=== PATIENT | male | born 1975 | race Caucasian/White ===

== ENCOUNTER 2023-06-03 09:25 | Inpatient (IN) | payer BC ==
[2023-06-03] MEDS ORDERED: Bisacodyl 10 MG SUPP PR PRN (09:50)
[2023-06-03] MEDS ORDERED: Senokot S 8.6-50 MG TAB PO PRN (09:50)
[2023-06-03] MEDS ORDERED: Bisacodyl 5 MG TAB PO PRN (09:50)
[2023-06-03 09:59] VITALS: BMI 32.1
[2023-06-03] MEDS ORDERED: Glucagon 1 MG/ML KIT IM PRN (09:59)
[2023-06-03] MEDS ORDERED: Dextrose 50% Abboject 50 ML SYRINGE SLOW IVP PRN (09:59)
[2023-06-03] MEDS ORDERED: Dextrose 5% in Water 1,000 ML IV PRN (09:59)
[2023-06-03] MEDS ORDERED: HumaLOG 300 UNITS/3 ML VIAL SC PRN ×2 (09:59)
[2023-06-03 10:32] LABS: #Basophils 0.1 thou/uL (0.0-0.2); #Eosinphils 0.3 thou/uL (0.0-0.7); #Monocytes 0.8 thou/uL (0.11-0.59); %Eosinophils 5.6 % (0.0-10.0); %Monocytes 13.3 % (0.0-10.0); Hemoglobin 13.7 g/dL (14.0-18.0); Mean Platelet Volume 10.3 fL (7.4-10.4)
[2023-06-03 10:41] LABS: #Neutrophils 3.1 thou/uL (1.40-6.50); %Lymphocytes 29.4 % (21.0-51.0); %Neutrophils 50.4 % (42.0-75.0); Hematocrit 39.2 % (42.0-52.0); Mean Corpuscular HGB CONC 34.9 g/dL (32.0-36.0); Mean Corpuscular Hemoglobin 32.3 pg (27.0-31.0); Mean Corpuscular Volume 92.5 fl (78.0-98.0); Platelet Count 239 10x3/uL (130-400); RBC Distribution Width 14.6 % (11.5-14.5); Red Blood Cell (RBC) Count 4.24 mill/uL (4.70-6.10); White Blood Cell (WBC) Count 6.1 10x3/uL (4.8-10.8)
[2023-06-03 10:45] LABS: Prothrombin Time 13.5 sec (12.0-14.7)
[2023-06-03 10:46] LABS: PTT 30.9 sec (22.9-36.1)
[2023-06-03 10:56] LABS: Hemoglobin A1c 5.2 % (4.0-6.0)
[2023-06-03 11:03] LABS: ALT (SGPT) 32 U/L (8-55); AST (SGOT) 21 U/L (5-34); Albumin 4.8 g/dL (3.5-5.0); Alkaline Phosphatase 45 U/L (40-110); Anion Gap 19 mmol/L (10-20); BUN (Urea Nitrogen) 79 mg/dL (8.9-20.6); Bilirubin, Total 0.5 mg/dL (0.2-1.2); CK (CPK) 239 U/L (30-200); Calc. Creatinine Clearance 59 mL/min (70-130); Calcium 9.3 mg/dL (7.8-10.44); Carbon Dioxide 18 mmol/L (22-29); Cardiac Risk 4.8 (Less than 4.5); Chloride 102 mmol/L (98-107); Cholesterol 187 mg/dl (< 200 Desired); Estimated GFR 28; Globulin 2.9 g/dL (2.4-3.5); Glucose 110 mg/dL (70-105); HDL Cholesterol 39 mg/dL (>60 Neg Risk); Lipase 69 U/L (8-78); Potassium 4.4 mmol/L (3.5-5.1); Protein, Total 7.7 g/dL (6.0-8.3); Sodium 135 mmol/L (136-145); Triglycerides 434 mg/dL (Less than 150)
[2023-06-03] MEDS: Sodium Chloride 0.9% 1,000 ML IV SCH ×2 (12:49→19:49)
[2023-06-03 16:32] LABS: Bacteria/HPF None Seen HPF (None Seen); Bilirubin Negative (Negative); Blood, Urine Negative (Negative); Clarity Clear (Clear); Glucose, Urine (Dipstick) Normal (Negative); Ketone, Urine 10 mg/dL (Negative); Leukocyte Negative Leu/uL (Negative); Nitrite Negative (Negative); Protein, Urine (Dipstick) Negative (Neg-Trace); RBC/HPF 0-3 HPF (0-3); Specific Gravity, Urine 1.023 (1.002-1.036); Squamous Epithelial 0-3 HPF (0-3); Urobilinogen Normal mg/dL (Less than 2); WBC/HPF 0-3 HPF (0-3); pH, Urine 5.5 (5.0-9.0)
[2023-06-03 16:41] LABS: SARS-CoV-2 NAA Rapid Test Not Detected (NotDetected)
[2023-06-03 16:54] LABS: Sodium, Urine Less than 20 mmol/L (Not Available)
[2023-06-03 16:55] LABS: Creatinine, Urine 186.79 mg/dL (63-166); Protein, Urine Random Quant Less than 10 mg/dL (1-14)
[2023-06-03] MEDS ORDERED: Icosapent Ethyl 1 GM CAPSULE PO SCH (17:00)
[2023-06-03 17:43] LABS: Urea Nitrogen, Random Urine Greater than 1200 mg/dl
[2023-06-03 21:09] LABS: Anion Gap 16 mmol/L (10-20); BUN (Urea Nitrogen) 57 mg/dL (8.9-20.6); CK (CPK) 172 U/L (30-200); Calc. Creatinine Clearance 99 mL/min (70-130); Calcium 8.6 mg/dL (7.8-10.44); Carbon Dioxide 18 mmol/L (22-29); Chloride 106 mmol/L (98-107); Estimated GFR 53; Glucose 113 mg/dL (70-105); Potassium 4.1 mmol/L (3.5-5.1); Sodium 136 mmol/L (136-145)
[2023-06-03] MEDS: Atenolol 50 MG TAB PO SCH (21:57)
[2023-06-03] MEDS: Sodium Bicarbonate 50 MEQ in Sodium Chloride 0.45% 1,000 ML IV SCH (21:57)
[2023-06-03] MEDS: Apixaban 5 MG TAB PO SCH (21:57)
[2023-06-04] MEDS: Sodium Bicarbonate 50 MEQ in Sodium Chloride 0.45% 1,000 ML IV SCH ×2 (04:34→11:45)
[2023-06-04 05:04] LABS: #Basophils 0.1 thou/uL (0.0-0.2); #Eosinphils 0.3 thou/uL (0.0-0.7); #Monocytes 0.8 thou/uL (0.11-0.59); #Neutrophils 2.5 thou/uL (1.40-6.50); %Basophils 1.3 % (0.0-1.0); %Eosinophils 5.4 % (0.0-10.0); %Lymphocytes 34.1 % (21.0-51.0); Hematocrit 36.6 % (42.0-52.0); Hemoglobin 12.4 g/dL (14.0-18.0); Mean Corpuscular HGB CONC 33.9 g/dL (32.0-36.0); Mean Corpuscular Hemoglobin 32.2 pg (27.0-31.0); Mean Corpuscular Volume 95.1 fl (78.0-98.0); Platelet Count 208 10x3/uL (130-400); RBC Distribution Width 14.7 % (11.5-14.5); Red Blood Cell (RBC) Count 3.85 mill/uL (4.70-6.10); White Blood Cell (WBC) Count 5.6 10x3/uL (4.8-10.8)
[2023-06-04 05:26] LABS: ALT (SGPT) 26 U/L (8-55); AST (SGOT) 18 U/L (5-34); Albumin 4.1 g/dL (3.5-5.0); Alkaline Phosphatase 37 U/L (40-110); Anion Gap 10 mmol/L (10-20); BUN (Urea Nitrogen) 41 mg/dL (8.9-20.6); Bilirubin, Direct 0.2 mg/dL (0.1-0.3); Bilirubin, Total 0.6 mg/dL (0.2-1.2); Calc. Creatinine Clearance 132 mL/min (70-130); Calcium 8.3 mg/dL (7.8-10.44); Carbon Dioxide 24 mmol/L (22-29); Chloride 107 mmol/L (98-107); Estimated GFR 74; Glucose 104 mg/dL (70-105); Magnesium 2.3 mg/dL (1.6-2.6); Potassium 4.7 mmol/L (3.5-5.1); Protein, Total 6.6 g/dL (6.0-8.3); Sodium 136 mmol/L (136-145)
[2023-06-04 05:48] LABS: HBCM Index 0.06 S/CO (0-0.79); HBSAg Index 0.25 S/CO (0-0.99); HIV (1/2) Antibody/Antigen Non-Reactive (NonReactive); HIV 1/2 INDEX 0.07 S/CO (<1.00); Hep A IgM AB Non-Reactive S/CO (NonReactive); Hep A IgM S/CO 0.12 S/CO (0-0.79); Hep B Surf Ag Non-Reactive S/CO (NonReactive); Hep C IgG Ab Non-Reactive S/CO (NonReactive); Hep C Index 0.05 S/CO (0-0.79); Hepatitis B Core IgM Abs Non-Reactive S/CO (NonReactive)
[2023-06-04] MEDS ORDERED: Dronedarone HCl 400 MG TAB PO SCH (08:00)
[2023-06-04] MEDS ORDERED: Magnesium Oxide 250 MG TAB PO SCH (09:00)
[2023-06-04] MEDS ORDERED: Aspirin 81 mg Enteric Coated Tablet PO SCH (09:00)
[2023-06-04] MEDS ORDERED: Fenofibrate Nanocrystallized 145 MG TAB PO SCH (09:00)
[2023-06-04] MEDS ORDERED: Venlafaxine 75 MG TAB PO SCH (09:00)
[2023-06-04] MEDS: Atenolol 50 MG TAB PO SCH (09:05)
[2023-06-04] MEDS: Apixaban 5 MG TAB PO SCH (09:05)
[2023-06-04 10:01] VITALS: BP 126/71; TEMP 97.7
[2023-06-04] MEDS ORDERED: Rosuvastatin 20 MG TAB PO SCH (21:00)
== END 2023-06-04 11:25 | disposition home or self-care (01) | DRG 683 ==
LOC: 2NO 09:28
PROVIDERS: ADMIT Family Medicine; ATTEND Emergency Medicine
DX: N17.9 Acute kidney failure, unspecified (principal); E87.21 Acute metabolic acidosis; E86.0 Dehydration; I48.91 Unspecified atrial fibrillation; E11.9 Type 2 diabetes mellitus without complications; I10 Essential (primary) hypertension; G47.33 Obstructive sleep apnea (adult) (pediatric); R53.1 Weakness; I48.0 Paroxysmal atrial fibrillation; E66.9 Obesity, unspecified; K21.9 Gastro-esophageal reflux disease without esophagitis; E86.9 Volume depletion, unspecified; Z20.822 Contact with and (suspected) exposure to COVID-19; Z79.899 Other long term (current) drug therapy; Z79.84 Long term (current) use of oral hypoglycemic drugs; Z98.890 Other specified postprocedural states; Z82.49 Family history of ischemic heart disease and other diseases of the circulatory system; Z68.32 Body mass index [BMI] 32.0-32.9, adult
CPT/HCPCS: 36415; 36416; 71045; 76770; 80048; 80053; 80061; 80074; 80076; 81001; 82550; 82570; 83036; 83690; 83735; 83880; 83930; 83935; 84156; 84300; 84443; 84540; 85025; 85610; 85730; 87389; 89190; 93005; 93010; J7050; U0002